=== PATIENT | male | born 1995 | race Caucasian/White ===

== ENCOUNTER 2019-04-23 14:35 | Emergency (ER) | payer SELFPAY ==
[~2019-04-23] VITALS: Ht 182.9 cm; Wt 78.4 kg
[2019-04-23 14:36] VITALS: BP 123/80
== END 2019-04-23 15:55 | disposition home or self-care (01) ==
LOC: ED 15:40
DX: L60.0 Ingrowing nail (principal)
CPT/HCPCS: 99283

== ENCOUNTER 2019-08-31 04:42 | Emergency (ER) | payer BC ==
[~2019-08-31] VITALS: Ht 177.8 cm; Wt 81.6 kg
[2019-08-31 04:52] VITALS: BP 121/57
== END 2019-08-31 05:59 ==
LOC: ED 05:30
DX: L60.0 Ingrowing nail (principal)
CPT/HCPCS: 99283

== ENCOUNTER 2019-09-09 09:53 | Emergency (ER) | payer BC ==
[~2019-09-09] VITALS: Ht 182.9 cm; Wt 81.8 kg
[2019-09-09 10:14] VITALS: BP 114/71
[2019-09-09 10:53] LABS: RAPID INFLUENZA A Negative (Negative)
[2019-09-09 10:54] LABS: RAPID INFLUENZA B POSITIVE (Negative)
== END 2019-09-09 11:25 | disposition home or self-care (01) ==
LOC: ED 11:20
DX: J10.1 Influenza due to other identified influenza virus with other respiratory manifestations (principal)
CPT/HCPCS: 71046; 87400; 99284